=== PATIENT | female | born 1955 | race Caucasian/White ===

== ENCOUNTER 2017-12-28 12:16 | Outpatient (CLI) | payer OTHER ==
--- NOTE | 2017-12-28 14:30 | RAD ---
TWO VIEWS RIGHT ANKLE: Indication: Disability evaluation with right ankle pain. FINDINGS: There is soft tissue swelling overlying the lateral aspect of the right ankle. 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 There is a well corticated ossicle seen just adjacent to the medial malleolus whic h likely reflects sequellae of remote trauma. There is enthesopathic change off the calcaneus. IMPRESSION: 1. No acute osseous abnormality. 2. Remote post-traumatic changes involving the tibiotalar joint with some mild tibiotalar osteoarthro sis. POS: [facility]
--- NOTE | 2017-12-28 14:39 | RAD ---
THREE VIEWS LUMBAR SPINE: INDICATION: Low back pain with radiation to the right leg. COMPARISON: None. FINDINGS: There is multilevel disk degenerative disease. There is grade I anterolisthesis of L3 on L4. No acute fracture or subluxation is evident. Mild vascular calcification involving the abdomina l aorta. There are small phleboliths in the lower pelvis. There is mild degenerative disease of bot h SI joints. IMPRESSION: Mild to moderate multilevel spondylosis of the lumbar spine with grade I anterolisthesis of L3 and L4 . POS: [facility]
--- NOTE | 2017-12-28 14:46 | RAD ---
TWO VIEWS RIGHT HAND: INDICATIONS: Right hand pain. FINDINGS: Bone mineralization appears within normal limits. There is mild first CMC osteoarthrosis. There is m ild scattered IP osteoarthrosis. No periarticular erosive change is evident. No acute fracture is d emonstrated. IMPRESSION: Mild scattered osteoarthrosis. POS: [facility]
== END 2017-12-28 12:17 | disposition home or self-care (01) ==
LOC: NAV RAD 12:16
PROVIDERS: ATTEND Family Medicine
DX: M15.9 Polyosteoarthritis, unspecified (principal); M19.041 Primary osteoarthritis, right hand; M47.896 Other spondylosis, lumbar region; M43.16 Spondylolisthesis, lumbar region
CPT/HCPCS: 72100